=== PATIENT | male | born 1970 | race Caucasian/White ===

== ENCOUNTER 2016-10-18 21:17 | Inpatient (IN) | payer SELFPAY ==
[~2016-10-18] VITALS: Ht 195.6 cm; Wt 127.5 kg
[~2016-10-18 21:17] MED LIST: SERT100T
[2016-10-18 21:36] VITALS: BP 140/103; PULSE 89; RESP 22; O2SAT 93
[2016-10-18] MEDS ORDERED: Ondansetron 2 mg/mL 2 mL Inj IVPUSH PRN (21:40)
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
[2016-10-18] MEDS: fentaNYL-PF 50 mCg/mL 2 mL Inj IVPUSH PRN ×2 (21:47→22:51)
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
[2016-10-18 22:13] LABS: BASOPHILS % (AUTO) 0.6 % (0-3); EOSINOPHILS % (AUTO) 2.5 % (0-5); MONOCYTES % (AUTO) 8.2 % (4-12); Mean Corpuscular Hemoglobin 31.5 pg (27.0-35.0); Mean Corpuscular Volume 92.7 fL (81-100); NEUTROPHILS % (AUTO) 58.1 % (40-74); Platelet Count 95 bil/L (150-400)
[2016-10-18 22:29] VITALS: BP 134/81; PULSE 91; RESP 16; O2SAT 94
[2016-10-18 23:50] VITALS: BP 131/71; PULSE 85; RESP 16; O2SAT 95
[2016-10-19] VITALS (15 sets, daily range): BP systolic 115–131; BP diastolic 68–83; PULSE 68–92; RESP 14–20; O2SAT 93–98
[2016-10-19] MEDS: fentaNYL-PF 50 mCg/mL 2 mL Inj IVPUSH PRN ×2 (00:15→02:18)
[2016-10-19] MEDS ORDERED: Alum-Mag Hydrox-Simeth 30 mL Suspension PO PRN (00:25)
[2016-10-19] MEDS ORDERED: Ondansetron 2 mg/mL 2 mL Inj IVPUSH PRN ×2 (00:25)
[2016-10-19 00:45] LABS: COLOR,URINE STRAW (YELLOW)
[2016-10-19 00:46] LABS: APPEARANCE,URINE CLOUDY (CLEAR,HAZY); OCCULT BLOOD,URINE MODERATE (NEGATIVE); UROBILINOGEN,URINE NORMAL (NORMAL)
[2016-10-19] MEDS: HYDROmorphone 0.5 mg/0.5 mL iSecure Syringe IVPUSH PRN ×2 (01:03→04:24)
[2016-10-19] MEDS: Lactated Ringer's 1,000 ML IV SCH ×3 (01:39→23:21)
[2016-10-19] MEDS ORDERED: HYDR-3825 PO (01:46)
[2016-10-19] MEDS ORDERED: FLUO40CA12 PO (01:46)
--- NOTE | 2016-10-19 04:08 | NUR ---
Admit to 1008 Pt arrived from ED at 0050; alert and fully oriented, able to transfer self to bed however this increased pain in side and shoulder significantly. Given IV Dilaudid with improved comfort. Pain relief did not last long on allowed dose, given Fentanyl also; pt able to doze intermittently. Will work on obtaining increased pain medication for improved relief in day. Lungs clear and equal in air movement, O2 via NC for sats > 92%, oximetry monitoring, will continue to monitor closely related to pneumothorax Pt has abrasions to head and right arm, cleaned, no dressings. IV fluids infusing, tele monitoring, voiding adequately in urinal, NPO for anticipated surgery in am. Oriented to call light, hospital routines, plan of care. Hourly rounding ongoing.
[2016-10-19] MEDS ORDERED: MetoCLOpramide 5 mg/mL 2 mL Inj IVPUSH PRN (06:30)
[2016-10-19] MEDS ORDERED: HYDROmorphone 1 mg/mL Inj IVPUSH PRN ×2 (06:30)
[2016-10-19] MEDS ORDERED: Ondansetron 8 mg ODT Tablet PO PRN (06:30)
--- NOTE | 2016-10-19 06:30 | NUR ---
Pain Pain inadequately controlled with available medications, Dr Mishra approved [employer] Dilaudid at regular settings. Initiated [employer], day RN to provide follow up for pain management. Pt on pulse oximetry and O2 via NC.
[2016-10-19] MEDS: HYDROmorphone PCA 0.2 mg/mL 30 mL Inj - Standard IV PRN ×2 (06:40→15:36)
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
[2016-10-19 07:59] LABS: Mean Corpuscular Hemoglobin 30.7 pg (27.0-35.0); Mean Corpuscular Volume 92.8 fL (81-100)
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
--- NOTE | 2016-10-19 08:08 | DRSVH ---
PROCEDURE: X-RAY CHEST ONE VIEW, PORTABLE ([id number]) INDICATIONS: upright portable chest, pneumothorax follow up TECHNIQUE: One view of the chest was acquired. COMPARISON: None. FINDINGS: Surgical changes and devices: monitoring specialist leads are present over the chest. Lungs and pleura: No pleural effusions or pneumothorax. Lungs are clear. Mediastinum: Mediastinal contours appear normal. Heart size is normal. Bones and chest wall: There is a fracture of the middle third of the right clavicle with slight infer ior angulation at the fracture site. There is a nondisplaced fracture of the posterior right sixth ri b.. Overlying soft tissues appear unremarkable. IMPRESSION: Fracture of the right clavicle and posterior right sixth rib. On this film lungs are cons idered clear. Mediastinum is within normal limits. Dictated by: Luis Cooney M.D. on 10/19/2016 at 8:05 Approved by: Luis Cooney M.D. on 10/19/2016 at 8:07
--- NOTE | 2016-10-19 08:25 | DRSVH ---
PROCEDURE: X-RAY CHEST ONE VIEW, PORTABLE ([id number]) INDICATIONS: 46 year-old male with tiny right apical pneumothorax on cervical spine CT. TECHNIQUE: One view of the chest was acquired. COMPARISON: [facility], CT, CT CERVICAL SPINE WO CON, 10/18/2016, 22:14. [facility], CR, XR CHEST 1VW (PORTABLE), 10/18/2016, 22:37. [facility], CR, XR CHEST 1VW (PO RTABLE), 10/18/2016, 21:33. [facility], CR, CHEST 2VW, 06/13/2009, 18:55. FINDINGS: Surgical changes and devices: None. Lungs and pleura: No pleural effusions or pneumothorax. Lungs are clear. Lung volumes are decrease d. Mediastinum: Mediastinal contours appear normal. Heart size is normal. Bones and chest wall: Right mid clavicle fracture is again noted, as well as posterior right sixth r ib fracture. No suspicious bony lesions. Overlying soft tissues appear unremarkable. IMPRESSION: 1. Decreased lung volumes, with no radiographically visible pneumothorax. 2. Right mid clavicle fracture again noted, as well as posterior right sixth rib fracture. Dictated by: Prashanth Price M.D. on 10/19/2016 at 8:20 Approved by: Prashanth Price M.D. on 10/19/2016 at 8:23
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
--- NOTE | 2016-10-19 11:30 | NUR ---
Evaluation completed. Please go to "Notes" then click on "Assessments and Notes" (bottom left corner of screen). Then select appropriate discipline tab on top of screen.
--- NOTE | 2016-10-19 16:02 | NUR ---
Respiratory update P: Pt with shallow breathing d/t rib fractures and clavicle fracture. Repeat chest x-ray performed this morning indicates very minimal pneumothorax. I: Pt is on POLITICAL WORKER Dilaudid for pain control and CPOx. IS education performed by RT; family and pt education on risks for pneumonia/atelactesis and hourly goal for IS use and CDB exercises on white board. Pt encouraged to ambulate at least TID, has walked around unit x2 so far. E: Pt is no longer requiring 2L oxygen via NC to maintain O2 sats greater than 92%. Lung sounds are clear.
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
[2016-10-19] MEDS ORDERED: Insulin Human REGular Inj 100 UNIT in 0.9% Sodium Chloride-Pha MIX 100 ML IV SCH (21:42)
[2016-10-20 01:00] VITALS: BP 127/78; PULSE 84; RESP 18; O2SAT 95
[2016-10-20] MEDS: HYDROmorphone PCA 0.2 mg/mL 30 mL Inj - Standard IV PRN (02:15)
[2016-10-20 06:03] VITALS: RESP 20; O2SAT 97
[2016-10-20] MEDS: Lactated Ringer's 1,000 ML IV SCH (06:24)
--- NOTE | 2016-10-20 06:40 | NUR ---
Activity Pt remains on dilauded BASE FILLER this shift. Cough and deep breathing encouraged, pt ambulates in uriarte x2. Urinal at bedside. Pt reports pain in clavicle and ribs, no reports of pain in R foot or leg this shift- pt wearing SCD bilaterally. Pt on Tele and cpox. LR infusing at 100 ml/h. Blood sugars checked Q4h per Dr Dean's request (113 at 2330, 122 at 0330), no insulin gtt initiated. Conflicting diet orders noted- one general and one NPO, both active. Care continues
[2016-10-20 06:41] VITALS: BP 123/72; PULSE 82; RESP 20; O2SAT 94
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
--- NOTE | 2016-10-20 07:31 | PCM.DISURG ---
Surgical Discharge Instruction Date of Service Oct 20, 2016 Dates of Hospitalization Date of Hospital Admission Oct 19, 2016 at 00:33 Providers Admitting Physician: Noelle Dean MD Primary Care Physician: Momo Doss MD Attending Physician: Noelle Dean MD Discharge Diagnosis Discharge Diagnosis Right ribs 3 & 5 fractures R clavicle fracture R pneumothorax Diet Discharge Diet: No restrictions Activity Discharge Activity-General: Other (No lifting with RUE.) Dressing and Incisional Care Hygiene: May shower Additional Instructions Discharge Instructions Follow up with Mauro Myers in orthopedics. Follow up with Noelle Dean in general surgery in 1-2 weeks and repeat chest XR. Noelle Dean MD Oct 20, 2016 07:31
[2016-10-20] MEDS ORDERED: OXYC5CAP4 PO (07:32)
[2016-10-20] MEDS ORDERED: Acetaminophen PO (07:32)
--- NOTE | 2016-10-20 07:57 | PCM.PNORTH ---
Subjective Date of Service: Oct 20, 2016 Visit Information: Reason for Visit Traumatic Pneumothorax,Comminuted Clavicular Fx Surgery/Surgery Date Post-Op Day # Date of Admission: Oct 19, 2016 at 00:33 Hospital Day # Subjective Pt is doing well. States clavicle is sore. He has remained in the sling and continues to ice it. HIs right foot is doing well, and is back to his baseline pain Objective Exam Objective Gen - alert, NAD Ext - Right clavicle: + swelling, TTP NVI R UE Patient comfortable in sling Right foot: mild pain with compression med/lat of calcaneus Multiple healed scars from previous surgeris No echhymosis or swelling NVI R LE Vital Signs and I/O Vital Sign - Last Date Time Temp Pulse Resp B/P Pulse Ox O2 Delivery O2 Flow Rate FiO2 10/20/16 06:41 37.0 82 20 123/72 94 Nasal Cannula 2.00 Intake and Output 10/19/16 10/19/16 10/20/16 Cumulative From/Thru 14:59 22:59 06:59 10/18/16 21:36 - 10/20/16 06:41 Intake Total 1228 ml 1600 ml 3184 ml Output Total 1550 ml 2850 ml Balance 1228 ml 50 ml 334 ml Intake Oral 1600 ml 1600 ml IV Total 1228 ml 1584 ml Output Urine Total 1550 ml 2850 ml # Voids 2 # Bowel Movements 0 0 Result Diagram: 10/19/16 0750 10/19/16 0750 Assessment & Plan Impression 1) Right minimally displaced medial clavicular shaft fracture 2) Right acute on chronic foot pain that is resolving to baseline Problems: Plan 1) Stay in sling at all times except when showering 2) Ok to move wrist and fingers but no lift, push, pull with the right hand 3) Ice to the clavicle for 30 minutes every 3 hours while awake for next 3 days 4) FU in 2 weeks, call for appt, will repeat xrays at follow up 5) Xrays of foot demonstrate intact fusions of hindfoot and midfoot. Old broken screw, unchanged from 2011 films No acute fractures or dislocations, discussed findings with patien Resuscitation Status: CPR: Attempt Resuscitation Mauro Myers DO Oct 20, 2016 07:57
--- NOTE | 2016-10-20 08:53 | DRSVH ---
PROCEDURE: X-RAY CHEST ONE VIEW, PORTABLE ([id number]) INDICATIONS: Followup traumatic pneumothorax TECHNIQUE: One view of the chest was acquired. COMPARISON: [facility], CT, CT CHEST ABD PELVIS W CON, 10/18/2016, 22:14. [facility], CT, CT CERVICAL SPINE WO CON, 10/18/2016, 22:14. [facility], CR, XR CHEST 1VW ( PORTABLE), 10/18/2016, 22:37. [facility], CR, XR CHEST 1VW (PORTABLE), 10/19/2016, 7:30. FINDINGS: Surgical changes and devices: None. Lungs and pleura: Right mid to lower lung and left basilar infiltrates with pulmonary contusions or lateral pneumonia. No pleural effusions or pneumothorax. Mediastinum: Mediastinal contours appear normal. Heart size is normal. Bones and chest wall: Mid right clavicular shaft fracture again noted. There is right posterior sixt h rib fracture with minimal displacement. IMPRESSION: 1. No pneumothorax visible. 2. Right mid to lower lung and left basilar infiltrates compatible with pulmonary contusions or bilat eral pneumonia. 2. Right ventricular shaft fracture and right sixth rib fracture. Dictated by: Isidoro Posada M.D. on 10/20/2016 at 8:46 Approved by: Isidoro Posada M.D. on 10/20/2016 at 8:52
[2016-10-20 09:33] VITALS: BP 127/77; PULSE 87; RESP 18; O2SAT 95
--- NOTE | 2016-10-20 10:20 | NUR ---
Social Work-discharge: Data:EMR reviewed. Pt is on day 1 of hospitalization for traumatic pneumothorax per H&P. Pt is medically stable for discharge today. SW confirmed with pt home no needs. PT has cleared pt for home no needs. Pt declines any substance abuse issues and declines resources. No discharge needs identified. All updated and agreeable to plan. Assessment:Pt who is independent at baseline. Plan:Pt to discharge home today via POV. No discharge needs identified. All updated and agreeable to plan. DEWAYNE Breen
[2016-10-20] MEDS ORDERED: OXYC5TAB72 PO (11:05)
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
--- NOTE | 2016-10-20 14:03 | NUR ---
Discharge Pt DC at 1230 with via private vehicle. Detailed teaching performed on Roxicodone use for pain management. Pt was given an additional 10mg of Darya on top of previous 10mg two hour earlier d/t inadequate pain control. 975mg of Acetaminophen has been given q 6hrs. Pt reports pain at a tolerable level (4/10) prior to DC and understands restrictions on using his right arm. He will follow up with both Dr. Dean and Dr. Humphreys and has asked to schedule his own appointments. All belongings with pt.
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
== END 2016-10-20 13:10 | disposition home or self-care (01) | DRG 563 ==
LOC: SED 21:17 → EDUNIT# 21:17 → EDBD 21:17 → OSC 10-19 00:33 → OBSVTOIN 10-19 00:33
PROVIDERS: ADMIT Surgery; ATTEND Surgery
DX: S42.021A Displaced fracture of shaft of right clavicle, initial encounter for closed fracture (principal); S22.41XA Multiple fractures of ribs, right side, initial encounter for closed fracture; S36.429A Contusion of unspecified part of small intestine, initial encounter; V28.0XXA Motorcycle driver injured in noncollision transport accident in nontraffic accident, initial encounter; Y93.I9 Activity, other involving external motion; Y92.9 Unspecified place or not applicable; Y99.8 Other external cause status; M79.671 Pain in right foot